=== PATIENT | male | born 1990 | race Caucasian/White ===

== ENCOUNTER 2025-01-23 09:16 | Inpatient (IN) | payer MEDICAID, OTHER ==
[~2025-01-23] VITALS: Ht 177.8 cm; Wt 97.8 kg
--- NOTE | 2025-01-23 11:17 | ED.PDOC ---
Musculoskeletal HPI Comments Vitals: temperature of 99.0F, pulse rate of 114, respiratory rate of 18, blood pressure fo 112/94, SpO2 of 95%RA HPI: Poor Historian. Patient c/o left lower leg ulcer wound, with associated swelling, redness, and pain and fever, today. Past Medical History: asthma Past Surgical History: denies REVIEW OF SYSTEMS: CONSTITUTIONAL: Denies acute: fever, diaphoresis, chills, generalized weakness. HEAD: Denies acute: headache, photophobia Eyes: Denies acute: Double vision, vision loss, eye pain, eye discharge. EARS: Denies acute: tinnitus, hearing loss, ear discharge, ear pain, THROAT: Denies acute: sore throat, swelling, difficulty swallowing , pain with swallowing, change in voice. NECK: Denies acute: neck pain, neck swelling, stiff neck. HEART: Denies acute : chest pain, palpitations, LUNGS: Denies acute: SOB, wheezing, cough, hemoptysis ABDOMEN: Denies acute: abdominal pain, Nausea, Vomiting, diarrhea, melena , hematemesis, hematochezia SKIN: Denies acute: itchiness. EXTREMITIES: Denies acute: calf pain, numbness, tingling, weakness, denies pain in extremity. Denies acute: Low back pain. Neuro: Denies acute: focal neurological deficit, motor or sensory focal neurological deficit, tremors, seizure like activity, confusion, dizziness, change in mental status, loss of bowel or bladder function, cauda equina like symptoms. : Denies acute: dysuria, hematuria, flank pain, increase in urinary frequency. PSYCH: Denies acute: hallucination, suicidal ideation, homicidal ideation. PHYSICAL EXAM: General: ---mild-----acute distress, awake and alert. Head: normocephalic, atraumatic. Neck: supple, trachea is midline, no swelling. Throat: Normal phonation. Eyes:, no erythema, no purulent discharge, no proptosis, no icterus. Heart: regular rate, regular rhythm, no significant murmur appreciated. Lungs: no apparent respiratory distress, Able to speak in full sentences. No wheezing, no rhonchi, no crackles. No stridors Clear to auscultation bilaterally. Abdomen: non tender to palpation, non distended, soft, no guarding, no rebound, + bowel sounds. Neuro: Awake, Alert, oriented to name, self, situation, follows commands GCS=15. Speech is normal. Skin: no petechia, no purpura, no cyanosis, non-pale, not jaundice. Lower extremities: --2/4 b/l - Pitting edema no deformity, no focal swelling, no calf TTP. Evaluation of the left lower extremity where his area of complaint is: Noted old scabs and chronic findings of erythema and swelling and redness but he is somewhat tender to palpation in the area above the ankle. Patient is neurovascularly intact in the affected extremity. Pedal pulses palpable. Sensory and motor are present. There is noted generalized swelling involving the left foot and above the left ankle Makes eye contact. moves all four extremities. Face: no apparent facial droop. Ambulating in the ED independently. Pedal pulses are palpable. ED COURSE: Chief Complaint: Lower Extremity Time Seen by MD: 10:20 Reviewed Notes: Nurses Notes, Allergies Allergies: Coded Allergies: NO KNOWN ALLERGIES (Unverified , 01/23/25) Information Source: Patient Mode of Arrival: Ambulatory Location: Left Was a procedure done? Was a procedure done?: No Differential Diagnosis EXT Differential Diagnosis: Cellulitis, CHF, Deep Vein Thrombosis, Compartment Syndrome, Neurovascular injury, Other (Deep tissue infection, necrotizing fasciitis, abscess) X-Ray, Labs, Meds, VS Vital Signs Date Time Temp Pulse Resp B/P (MAP) Pulse Ox O2 Delivery O2 Flow Rate FiO2 01/23/25 12:42 98.1 118 18 123/83 (96) 95 98.1 01/23/25 10:50 97.8 107 18 124/86 (99) 95 97.8 01/23/25 09:59 99.0 114 18 112/94 (100) 95 99.0 Lab Test 01/23/25 11:34 Range/Units White Blood Count 6.6 4.4-10.8 10^3/uL Red Blood Count 5.29 4.5-5.90 10^6/uL Hemoglobin 15.2 13.5-17.5 g/dL Hematocrit 43.9 41.0-53.0 % Mean Corpuscular Volume 82.8 80.0-100.0 fL Mean Corpuscular Hemoglobin 28.6 28.0-32.0 pg Mean Corpuscular Hemoglobin Concent 34.6 32.0-36.0 g/dL Red Cell Distribution Width 14.3 11.8-14.3 % Platelet Count 318 140-450 10^3/uL Mean Platelet Volume 7.4 6.9-10.8 fL Neutrophils (%) (Auto) 75.2 37.0-80.0 % Lymphocytes (%) (Auto) 12.0 10.0-50.0 % Monocytes (%) (Auto) 8.4 0.0-12.0 % Eosinophils (%) (Auto) 3.6 0.0-7.0 % Basophils (%) (Auto) 0.8 0.0-2.0 % Neutrophils # (Auto) 5.0 1.6-8.6 10 ^3/uL Lymphocytes # (Auto) 0.8 0.4-5.4 10 ^3/uL Monocytes # (Auto) 0.6 0-1.3 10 ^3/uL Eosinophils # (Auto) 0.2 0-0.8 10 ^3/uL Basophils # (Auto) 0.1 0-0.2 10 ^3/uL Nucleated Red Blood Cells 0.1 % Erythrocyte Sedimentation Rate 61 H 0-20 mm/hr Sodium Level 137 136-145 mmol/L Potassium Level 4.2 3.5-5.1 mmol/L Chloride Level 103 98-107 mmol/L Carbon Dioxide Level 25 20-31 mmol/L Anion Gap 9 5-15 Blood Urea Nitrogen 8 L 9-23 mg/dL Creatinine 0.86 0.700-1.30 mg/dL Glomerular Filtration Rate Calc 117 >90 mL/min BUN/Creatinine Ratio 9.3 L 10.0-20.0 Serum Glucose 113 H 74-106 mg/dL Lactic Acid Level 0.9 0.4-2.0 mmol/L Calcium Level 9.1 8.7-10.4 mg/dL Total Bilirubin 0.7 0.2-1.0 mg/dL Aspartate Amino Transferase (AST) 31 13-40 U/L Alanine Aminotransferase (ALT) 48 H 7-40 U/L Alkaline Phosphatase 109 46-116 U/L C-Reactive Protein High Sensitivity 12.08 H <1.0 mg/dL B-Type Natriuretic Peptide 2.97 0-100 pg/mL Total Protein 7.6 5.7-8.2 g/dL Albumin 4.2 3.2-4.8 g/dL Microbiology Date/Time Source Procedure Growth Status 01/23/25 13:11 Blood Blood Culture - Preliminary NO GROWTH AFTER 24 HOURS OF INCUBATION. Resulted 01/23/25 13:00 Blood Blood Culture - Preliminary NO GROWTH AFTER 24 HOURS OF INCUBATION. Resulted [facility] [id number] [place] [address] Ph: [phone] DIAGNOSTIC IMAGING Diagnostic Imaging Report : [id number] Signed PATIENT: CODI FRENCH ACCT: [id number] UNIT: [id number] : 1990 LOC: ER ROOM / BED: / AGE / SEX: 34 / M ADM STATUS: REG ER SERVICE 1041 ORDERING PHYSICIAN: ALEJANDRO WATKINS DO PROCEDURE(s): LLDVT - LT Lower DVT REASON: PAIN RED SWELLING ORDER NUMBER(s): [id number], ACCESSION NUMBER(s): [id number] Clinical History: PAIN RED SWELLING Comparison: None Technique: Duplex Doppler evaluation of the deep venous system of the left lower extremity from the common femoral vein to the popliteal vein including color Doppler and spectral/pulsed waveform analysis was performed. Findings: The common femoral vein demonstrates appropriate compressibility and waveform variability . There is compressibility/patency of the great saphenous vein at the proximal thigh . The femoral vein demonstrates appropriate compressibility and waveform variability . The deep femoral vein demonstrates appropriate compressibility and waveform variability . The popliteal vein demonstrates appropriate compressibility and waveform variability . There is normal compressibility at the tibioperoneal trunk. Impression: No left deep venous thrombosis. If clinical concern/symptoms persist or worsen, short-interval follow-up study is suggested. ATED BY: JESUS NOONAN MD DICTATED DATE/TIME: 01/23/25 1236 SIGNED BY: JESUS NOONAN MD SIGNED DATE/TIME: 01/23/251235 CC: Time of 1ST Reevaluation: 10:20 Reevaluation 1ST: Unchanged Patient Education/Counseling: Diagnosis, Treatment Family Education/Counseling: No Family Present Comments Patient presented with the above HPI.--leg cellulitis/erythema----workup was initiated. patient was found with the above mentioned diagnosis. the following medications were ordered: please refer to order lists of meds and tests obtained by myself Dr. Watkins. Patient ED course and VS have been stabilized. Patient has been reassessed in the ED and remained in a stable condition. Pertinent incidental findings were discussed with the patient and/or family. Patient/family voices understanding and is agreeable with plan. Patient has been observed in the ED adequate length of time to insure improvement/stability. Escalation of care considered: Consideration of escalation to observation or admission Patient was ADMITTED to the medicine team for further evaluation and treatment of their presentation. All the reports of any imaging studies that were ordered by myself were reviewed by myself. Departure 1 Departure Time of Disposition: 12:28 Impression: Primary Impression: Left leg cellulitis Disposition: ADMITTED INPATIENT [facility] Condition: Guarded Discharged With: Self Critical Care Note Critical Care Time?: No I personally scribed for ALEJANDRO WATKINS DO ([email or web address]) on 01/23/25 at 11:17. Electronically submitted by [employer] ([email or web address]). I personally scribed for ALEJANDRO WATKINS DO ([email or web address]) on 01/23/25 at 12:34. Electronically submitted by [employer] ([email or web address]). I personally scribed for ALEJANDRO WATKINS DO ([email or web address]) on 01/23/25 at 12:49. Electronically submitted by [employer] ([email or web address]). I personally scribed for ALEJANDRO WATKINS DO ([email or web address]) on 01/23/25 at 12:50. Electronically submitted by [employer] ([email or web address]). ALEJANDRO WATKINS DO Jan 23, 2025 11:17
[2025-01-23 11:54] LABS: Basophils # (auto) 0.1 10 ^3/uL (0-0.2); Basophils % (auto) 0.8 % (0.0-2.0); Eosinophils # (auto) 0.2 10 ^3/uL (0-0.8); Eosinophils % (auto) 3.6 % (0.0-7.0); Hematocrit 43.9 % (41.0-53.0); Hemoglobin 15.2 g/dL (13.5-17.5); Lymphocytes # (auto) 0.8 10 ^3/uL (0.4-5.4); Mean Corpuscular Hemoglobin 28.6 pg (28.0-32.0); Mean Corpuscular Hgb Conc. 34.6 g/dL (32.0-36.0); Mean Corpuscular Volume 82.8 fL (80.0-100.0); Monocytes # (auto) 0.6 10 ^3/uL (0-1.3); Monocytes % (auto) 8.4 % (0.0-12.0); Neutrophils % (auto) 75.2 % (37.0-80.0); Nucleated Red Blood Cells % 0.1 %; Platelet Count (auto) 318 10^3/uL (140-450); Red Blood Cells 5.29 10^6/uL (4.5-5.90); Red Cell Distribution Width 14.3 % (11.8-14.3); White Blood Cell 6.6 10^3/uL (4.4-10.8)
[2025-01-23 12:10] LABS: Albumin 4.2 g/dL (3.2-4.8); Alkaline Phosphatase 109 U/L (46-116); Anion Gap 9 (5-15); Aspartate Aminotransferase 31 U/L (13-40); BUN/Creatinine Ratio 9.3 (10.0-20.0); Calcium 9.1 mg/dL (8.7-10.4); Carbon Dioxide 25 mmol/L (20-31); Chloride 103 mmol/L (98-107); Potassium 4.2 mmol/L (3.5-5.1); Sodium 137 mmol/L (136-145); Total Protein 7.6 g/dL (5.7-8.2)
[2025-01-23 12:11] LABS: Alanine Aminotransferase 48 U/L (7-40); Bilirubin, Total 0.7 mg/dL (0.2-1.0); Blood Urea Nitrogen 8 mg/dL (9-23); Glucose 113 mg/dL (74-106)
[2025-01-23 12:19] LABS: CRP High Sensitivity 12.08 mg/dL (<1.0)
[2025-01-23 12:37] LABS: Erythrocyte Sedimentation Rate 61 mm/hr (0-20)
--- NOTE | 2025-01-23 12:39 | DVH ---
Clinical History: PAIN RED SWELLING Comparison: None Technique: Duplex Doppler evaluation of the deep venous system of the left lower extremity from the common femo ral vein to the popliteal vein including color Doppler and spectral/pulsed waveform analysis was perf ormed. Findings: The common femoral vein demonstrates appropriate compressibility and waveform variability . There is compressibility/patency of the great saphenous vein at the proximal thigh . The femoral vein demonstrates appropriate compressibility and waveform variability . The deep femoral vein demonstrates appropriate compressibility and waveform variability . The popliteal vein demonstrates appropriate compressibility and waveform variability . There is normal compressibility at the tibioperoneal trunk. Impression: No left deep venous thrombosis. If clinical concern/symptoms persist or worsen, short-interval follow-up study is suggested.
[2025-01-23] MEDS: SODIUM CHLORIDE 0.9% 1,000 ML IV ONE ×2 (13:28→13:30)
[2025-01-23] MEDS: PIPERACILLIN-TAZOB 3.375GM 100 ML IV ONE (13:36)
[2025-01-23] MEDS ORDERED: NITROGLYCERIN 0.4 MG SL TAB SL PRN (14:00)
[2025-01-23] MEDS ORDERED: DOCUSATE SOD 100 MG CAP PO PRN (14:00)
[2025-01-23] MEDS ORDERED: ONDANSETRON HCL 4 MG/2 ML VIAL IV PRN (14:00)
[2025-01-23] MEDS ORDERED: VANCOMYCIN PER PHARMACY 0 MG IV SCH (14:00)
[2025-01-23] MEDS ORDERED: MORPHINE SULFATE INJ 2 MG/ml SYRG IV PRN (14:00)
--- NOTE | 2025-01-23 14:59 | DVHINCON2 ---
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 Recently he started developing pain and has also developed new wounds. He has pets in his house which has also contributed to some of his wounds. Id is consulted to help with management of cellulitis and wounds Reports smokes marijuana Denies history of IV drug use Currently he is on disability Allergies: Coded Allergies: NO KNOWN ALLERGIES (Unverified , 01/23/25) Current Medications Current Medications Medications (Trade) Dose Ordered Sig/Linda Route PRN Reason Start Time Stop Time Status Last Admin Sodium Chloride 1,000 ml @ 120 mls/hr Q8H20M IV 01/23/25 14:00 Acetaminophen/ Hydrocodone Bitart ([place] 5/325MG Tab) 1 tab Q4HP PRN PO MODERATE PAIN (4-6 PAIN SCALE) 01/23/25 14:00 Ondansetron HCl (Zofran) 4 mg Q4HP PRN IV NAUSEA / VOMITING 01/23/25 14:00 Docusate Sodium (Colace Capsule) 100 mg BIDPRN PRN PO FOR CONSTIPATION 01/23/25 14:00 Enoxaparin Sodium (Lovenox) 40 mg DAILY SC 01/24/25 10:00 Acetaminophen (Tylenol Tablet) 650 mg Q6HP PRN PO PAIN SCALE 1-3 OR TEMP>100.4 01/23/25 14:00 Morphine Sulfate 2 mg Q4HPRN PRN IV SEVERE PAIN (7-10 PAIN SCALE) 01/23/25 14:00 Nitroglycerin (Ntrostat Sublingual) 0.4 mg Q5MINP PRN SL FOR CHEST PAIN 01/23/25 14:00 Morphine Sulfate 2 mg Q30M PRN IV FOR CHEST PAIN 01/23/25 14:00 Vancomycin HCl 0 ml @ 0 mls/hr UD IV 01/23/25 14:00 UNV Piperacillin Sod/ Tazobactam Sod 100 ml @ 25 mls/hr Q6HR IV 01/23/25 18:00 Review of Systems All 10 systems reviewed and are negative except as noted in HPI Vital Signs Vital Signs Date Time Temp Pulse Resp B/P (MAP) Pulse Ox O2 Delivery O2 Flow Rate FiO2 01/23/25 12:42 98.1 118 18 123/83 (96) 95 98.1 Physical Exam General alert and oriented HEENT: Atraumatic Neck: No swelling Lungs: Equal air entry and clear to auscultation Cardiovascular: S2 heard no murmur Abdomen: Soft nontender, no organomegaly, nondistended Neuro: Alert and oriented, no focal deficit Psych: Normal mood and affect Left leg: Edema present, chronic skin changes and there are multiple wounds Labs/Diagnostic Data Labs Test 01/23/25 11:34 Range/Units White Blood Count 6.6 4.4-10.8 10^3/uL Red Blood Count 5.29 4.5-5.90 10^6/uL Hemoglobin 15.2 13.5-17.5 g/dL Hematocrit 43.9 41.0-53.0 % Mean Corpuscular Volume 82.8 80.0-100.0 fL Mean Corpuscular Hemoglobin 28.6 28.0-32.0 pg Mean Corpuscular Hemoglobin Concent 34.6 32.0-36.0 g/dL Red Cell Distribution Width 14.3 11.8-14.3 % Platelet Count 318 140-450 10^3/uL Mean Platelet Volume 7.4 6.9-10.8 fL Neutrophils (%) (Auto) 75.2 37.0-80.0 % Lymphocytes (%) (Auto) 12.0 10.0-50.0 % Monocytes (%) (Auto) 8.4 0.0-12.0 % Eosinophils (%) (Auto) 3.6 0.0-7.0 % Basophils (%) (Auto) 0.8 0.0-2.0 % Neutrophils # (Auto) 5.0 1.6-8.6 10 ^3/uL Lymphocytes # (Auto) 0.8 0.4-5.4 10 ^3/uL Monocytes # (Auto) 0.6 0-1.3 10 ^3/uL Eosinophils # (Auto) 0.2 0-0.8 10 ^3/uL Basophils # (Auto) 0.1 0-0.2 10 ^3/uL Nucleated Red Blood Cells 0.1 % Erythrocyte Sedimentation Rate 61 H 0-20 mm/hr Sodium Level 137 136-145 mmol/L Potassium Level 4.2 3.5-5.1 mmol/L Chloride Level 103 98-107 mmol/L Carbon Dioxide Level 25 20-31 mmol/L Anion Gap 9 5-15 Blood Urea Nitrogen 8 L 9-23 mg/dL Creatinine 0.86 0.700-1.30 mg/dL Glomerular Filtration Rate Calc 117 >90 mL/min BUN/Creatinine Ratio 9.3 L 10.0-20.0 Serum Glucose 113 H 74-106 mg/dL Lactic Acid Level 0.9 0.4-2.0 mmol/L Calcium Level 9.1 8.7-10.4 mg/dL Total Bilirubin 0.7 0.2-1.0 mg/dL Aspartate Amino Transferase (AST) 31 13-40 U/L Alanine Aminotransferase (ALT) 48 H 7-40 U/L Alkaline Phosphatase 109 46-116 U/L C-Reactive Protein High Sensitivity 12.08 H <1.0 mg/dL B-Type Natriuretic Peptide 2.97 0-100 pg/mL Total Protein 7.6 5.7-8.2 g/dL Albumin 4.2 3.2-4.8 g/dL Assessment A 34-year-old male Left leg cellulitis Left leg edema Left leg multiple wounds Venous reflux disease Chronic venous stasis Marijuana use Recommendations Due to his previous job profile, there is suspicion for venous reflux disease on the left extremity contributing to leg edema as well as chronic wounds. Ordered Doppler ultrasound in standing position to rule out venous reflux disease For now continue IV vancomycin, we will monitor for toxicity with labs We will DC IV Zosyn and switch to IV ceftriaxone Continue wound care Elevate leg Plan discussed with the patient and Dr. Cross Total 80 minutes spent during the encounter and coordinating the care and formulating the plan Thank you for consult Plan discussed with: Patient, Other REESE FRENCH MD Jan 23, 2025 14:59
[2025-01-23] MEDS: VANCOMYCIN 1GM/200ML PM 250 ML IV ONE ×2 (15:16→16:41)
--- NOTE | 2025-01-23 15:54 | DVHHP2 ---
History of Present Illness Reason for Visit: Left lower extremity pain and chronic wounds History of Present Illness 34-year-old male with a known history of chronic marijuana use initially presented to the hospital with left leg pain associated with a chronic left lower extremity wounds. Patient's has a disease wounds are for years but lately he will develop increased pain in the left lower extremity. Also he has some PET dog at home and who contribute to his wound by scratching it. Patient's denies any fevers chills. Denies any IV drug use. Pulmonary: Asthma Past Surgical History: None Drugs: Marijuana Review of Systems Review of Systems Twelve review of system are negative besides mentioned above. Allergies: Coded Allergies: NO KNOWN ALLERGIES (Unverified , 01/23/25) Medications Current Medications Medications Dose Ordered Sig/Linda Route Start Time Stop Time Status Last Admin Dose Admin Sodium Chloride 1,000 ml @ 120 mls/hr Q8H20M IV 01/23/25 14:00 Acetaminophen/ Hydrocodone Bitart 1 tab Q4HP PRN PO 01/23/25 14:00 Ondansetron HCl 4 mg Q4HP PRN IV 01/23/25 14:00 Docusate Sodium 100 mg BIDPRN PRN PO 01/23/25 14:00 Enoxaparin Sodium 40 mg DAILY SC 01/24/25 10:00 Acetaminophen 650 mg Q6HP PRN PO 01/23/25 14:00 Morphine Sulfate 2 mg Q4HPRN PRN IV 01/23/25 14:00 Nitroglycerin 0.4 mg Q5MINP PRN SL 01/23/25 14:00 Morphine Sulfate 2 mg Q30M PRN IV 01/23/25 14:00 Vancomycin HCl 0 ml @ 0 mls/hr UD IV 01/23/25 14:00 Ceftriaxone Sodium 50 ml @ 100 mls/hr DAILY@09 IV 01/24/25 09:00 UNV Vancomycin HCl 300 ml @ 200 mls/hr Q12H IV 01/24/25 03:00 Exam Vital Signs Vital Signs Date Time Temp Pulse Resp B/P (MAP) Pulse Ox O2 Delivery O2 Flow Rate FiO2 01/23/25 12:42 98.1 118 18 123/83 (96) 95 98.1 Exam HEENT pupils are reactive Neck is supple CV is S1-S2 regular rate and rhythm Respiratory bilateral clear GI positive bowel sound Extremity trace edema left lower extremity has chronic wounds and some redness 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 Labs/Xrays Labs Test 01/23/25 11:34 Range/Units White Blood Count 6.6 4.4-10.8 10^3/uL Red Blood Count 5.29 4.5-5.90 10^6/uL Hemoglobin 15.2 13.5-17.5 g/dL Hematocrit 43.9 41.0-53.0 % Mean Corpuscular Volume 82.8 80.0-100.0 fL Mean Corpuscular Hemoglobin 28.6 28.0-32.0 pg Mean Corpuscular Hemoglobin Concent 34.6 32.0-36.0 g/dL Red Cell Distribution Width 14.3 11.8-14.3 % Platelet Count 318 140-450 10^3/uL Mean Platelet Volume 7.4 6.9-10.8 fL Neutrophils (%) (Auto) 75.2 37.0-80.0 % Lymphocytes (%) (Auto) 12.0 10.0-50.0 % Monocytes (%) (Auto) 8.4 0.0-12.0 % Eosinophils (%) (Auto) 3.6 0.0-7.0 % Basophils (%) (Auto) 0.8 0.0-2.0 % Neutrophils # (Auto) 5.0 1.6-8.6 10 ^3/uL Lymphocytes # (Auto) 0.8 0.4-5.4 10 ^3/uL Monocytes # (Auto) 0.6 0-1.3 10 ^3/uL Eosinophils # (Auto) 0.2 0-0.8 10 ^3/uL Basophils # (Auto) 0.1 0-0.2 10 ^3/uL Nucleated Red Blood Cells 0.1 % Erythrocyte Sedimentation Rate 61 H 0-20 mm/hr Sodium Level 137 136-145 mmol/L Potassium Level 4.2 3.5-5.1 mmol/L Chloride Level 103 98-107 mmol/L Carbon Dioxide Level 25 20-31 mmol/L Anion Gap 9 5-15 Blood Urea Nitrogen 8 L 9-23 mg/dL Creatinine 0.86 0.700-1.30 mg/dL Glomerular Filtration Rate Calc 117 >90 mL/min BUN/Creatinine Ratio 9.3 L 10.0-20.0 Serum Glucose 113 H 74-106 mg/dL Lactic Acid Level 0.9 0.4-2.0 mmol/L Calcium Level 9.1 8.7-10.4 mg/dL Total Bilirubin 0.7 0.2-1.0 mg/dL Aspartate Amino Transferase (AST) 31 13-40 U/L Alanine Aminotransferase (ALT) 48 H 7-40 U/L Alkaline Phosphatase 109 46-116 U/L C-Reactive Protein High Sensitivity 12.08 H <1.0 mg/dL B-Type Natriuretic Peptide 2.97 0-100 pg/mL Total Protein 7.6 5.7-8.2 g/dL Albumin 4.2 3.2-4.8 g/dL Assessment/Plan Assessment/Plan A 34-year-old male with a known history of chronic wounds of the left lower ext remity, chronic marijuana use presented to the hospital with a left lower extremity pain found to have 1. Left lower extremity cellulitis 2. Left lower extremity chronic wounds 3. Rule out venous reflux disease 4. Chronic marijuana use 5. History of asthma as a child currently outgrew -IV antibiotics infectious disease consultation Plan discussed with: Patient My Orders Orders - JEFF LEYVA MD Procedure Category Date Status Time Admit ADMIT 01/23/25 Transmitted 13:49 Code Status CODE 01/23/25 Transmitted 13:49 2 Gm Sodium Diet DIET 01/23/25 Transmitted Dinner Sodium Chloride 0.9% PHA 01/23/25 In Process 14:00 Hydrocodone-Acet PHA 01/23/25 In Process 5/325mg Tab ([place] 14:00 Ondansetron Hcl PHA 01/23/25 In Process (Zofran) 14:00 Docusate Sodium PHA 01/23/25 In Process Capsule (Colace 14:00 Enoxaparin Sodium PHA 01/24/25 In Process (Lovenox) 10:00 Condition: Stable HARDY 01/23/25 In Process 13:49 Acetaminophen Tablet PHA 01/23/25 In Process (Tylenol Tablet) 14:00 Morphine Sulfate PHA 01/23/25 In Process Injection 14:00 Nitroglycerin PHA 01/23/25 In Process Sublingual (Ntrostat 14:00 Morphine Sulfate PHA 01/23/25 In Process Injection 14:00 Stat Ekg For Chest HARDY 01/23/25 In Process Pain 13:49 Notify Of Changes HARDY 01/23/25 In Process From Base 13:49 Packer Operator Automatic For [facility] 01/23/25 In Process 24 Hours 13:49 Emergency Dysrhythmia [facility] 01/23/25 In Process Protocol 13:49 Rhythm Strips Once [facility] 01/23/25 In Process Every Shift 13:49 Oxygen By Nasal RT 01/23/25 Transmitted Cannula 13:49 Vancomycin Per PHA 01/23/25 In Process Pharmacy 14:00 * Infectious Betty- CONS 01/23/25 Transmitted Mallad 13:49 Vancomycin 1.5gm/300ml PHA 01/24/25 In Process 03:00 Vancomycin,Trough LAB 01/25/25 Verified 02:00 Vancomycin Per [facility] 01/25/25 In Process Pharmacy Protoc 03:00 Creatinine LAB 01/23/25 Logged 05:00 Date of Service: Jan 23, 2025 Billing Provider: JEFF LEYVA MD Common Visit Codes: NOT BILLABLE JEFF LEYVA MD Jan 23, 2025 15:54
[2025-01-23] MEDS: SODIUM CHLORIDE 0.9% 1,000 ML IV SCH (16:42)
[2025-01-23] MEDS: MORPHINE SULFATE INJ 2 MG/ml SYRG IV PRN (16:42)
[2025-01-23 17:15] VITALS: BP 130/68; PULSE 100; RESP 20; TEMP 98.4; O2SAT 96
[2025-01-23] MEDS ORDERED: PIPERACILLIN-TAZOB 3.375GM 100 ML IV SCH (18:00)
[2025-01-23] MEDS: cefTRIAXone 1GM/50ML D5W 50 ML IV SCH (18:09)
[2025-01-23 20:00] VITALS: PULSE 104; RESP 17; O2SAT 98
[2025-01-23 21:00] VITALS: BP 128/72; PULSE 109; RESP 20; TEMP 97.9; O2SAT 97
[2025-01-23] MEDS: HYDROcodone-ACET 5/325MG TAB PO PRN (22:43)
[2025-01-23] MEDS: ACETAMINOPHEN 325 MG TAB PO PRN (23:46)
[2025-01-24] VITALS (9 sets, daily range): BP systolic 96–141; BP diastolic 60–83; PULSE 70–95; RESP 15–20; TEMP 97.1–98.3; O2SAT 94–98
[2025-01-24] MEDS: VANCOMYCIN 1.5GM/300ML 300 ML IV SCH (02:55)
--- NOTE | 2025-01-24 08:40 | DVHPN2 ---
Progress Note - Dictate Date Seen: Jan 24, 2025 Has the PT tested + for MRSA If YES, has PT been informed?: No Medical Necessity Reason Pt with a Central, PICC or Fol: No Subjective No new complaints noted at this time. vital signs Vital Sign Date Time Temp Pulse Resp B/P (MAP) Pulse Ox O2 Delivery O2 Flow Rate FiO2 01/24/25 05:00 97.6 83 18 103/64 (77) 94 97.6 01/23/25 20:00 Room Air* 0 21 Total Intake and Output 01/23/25 01/23/25 01/24/25 15:00 23:00 07:00 Intake Total 290 ml 950 ml Balance 290 ml 950 ml medications Current Medications Medications Dose Ordered Sig/Linda Route Start Time Stop Time Status Last Admin Dose Admin Sodium Chloride 1,000 ml @ 120 mls/hr Q8H20M IV 01/23/25 14:00 01/23/25 22:20 120 MLS/HR Acetaminophen/ Hydrocodone Bitart 1 tab Q4HP PRN PO 01/23/25 14:00 01/23/25 22:43 1 TAB Ondansetron HCl 4 mg Q4HP PRN IV 01/23/25 14:00 Docusate Sodium 100 mg BIDPRN PRN PO 01/23/25 14:00 Enoxaparin Sodium 40 mg DAILY SC 01/24/25 10:00 Acetaminophen 650 mg Q6HP PRN PO 01/23/25 14:00 01/23/25 23:46 650 MG Morphine Sulfate 2 mg Q4HPRN PRN IV 01/23/25 14:00 01/23/25 16:42 2 MG Nitroglycerin 0.4 mg Q5MINP PRN SL 01/23/25 14:00 Morphine Sulfate 2 mg Q30M PRN IV 01/23/25 14:00 Vancomycin HCl 0 ml @ 0 mls/hr UD IV 01/23/25 14:00 Ceftriaxone Sodium 50 ml @ 100 mls/hr DAILY@09 IV 01/23/25 18:00 01/23/25 18:09 100 MLS/HR Vancomycin HCl 300 ml @ 200 mls/hr Q12H IV 01/24/25 03:00 01/24/25 02:55 200 MLS/HR objective General alert and oriented HEENT: Atraumatic Neck: No swelling Lungs: Equal air entry and clear to auscultation Cardiovascular: S2 heard no murmur Abdomen: Soft nontender, no organomegaly, nondistended Neuro: Alert and oriented, no focal deficit Psych: Normal mood and affect Left leg: Edema present, chronic skin changes and there are multiple wounds laboratory and microbiology Laboratory Tests 01/24/25 06:03 01/23/25 11:34 Test 01/23/25 11:34 Range/Units Serum Glucose 113 H 74-106 mg/dL Assessment/Plan Patient is a 34-year-old male presents to the hospital with: Left leg cellulitis Left leg edema Left leg multiple wounds Venous reflux disease Chronic venous stasis Marijuana use Recommendations Due to his previous job profile, there is suspicion for venous reflux disease on the left extremity contributing to leg edema as well as chronic wounds. Ordered Doppler ultrasound in standing position to rule out venous reflux disease. However, radiology called that they do not perform this test as Inpatient hence discussed with Dr. Cross to recommend for Outpatient. For now continue IV Vancomycin, we will monitor for toxicity with labs We will DC IV Zosyn and switch to IV Ceftriaxone Continue wound care Elevate leg At the time of discharge consider tapering to oral Bactrim for 5-7 days. Vancomycin Trough is 11.9. Antibiotic Status: Zosyn IV [Started on 01/23 - Ongoing] Vancomycin IV [Started on 01/23 - Ongoing] Ceftriaxone IV [Started on 01/23 - Ongoing] Plan discussed with Dr. Cross A total of 50 minutes was spent performing this encounter on this date of service. My evaluation of this patient included review of the chart, history, laboratory, imaging findings and discussion with the patient and or family, treatment team placing orders and documenting the plan. Thank you for consult Plan discussed with: REESE Alvarez MD Jan 24, 2025 08:40
[2025-01-24] MEDS: ENOXAPARIN SOD 40 MG/0.4 ML SYRINGE SC SCH (09:52)
--- NOTE | 2025-01-24 14:15 | DVHPN2 ---
Subjective Overnight events noted. Patient is still complaining of left lower extremity pain. Reviewed: Care Plan Changes from previous H/P or p: No Changes Objective Vitals Vital Signs Date Time Temp Pulse Resp B/P (MAP) Pulse Ox O2 Delivery O2 Flow Rate FiO2 01/24/25 09:00 97.8 70 18 96/64 (75) 98 97.8 01/24/25 08:00 Room Air* 0 21 Intake/Output Intake and Output 01/24/25 07:00 Intake Total 1240 ml Balance 1240 ml Intake Oral 950 ml IV Total 290 ml # Voids 5 Exam HEENT pupils are reactive Neck is supple CV is S1-S2 regular rate and rhythm Respiratory are clear GI positive bowel sound Extremity left lower extremity redness and chronic wounds [employer] no motor deficit Medications Current Medications Medications Dose Ordered Sig/Linda Route Start Time Stop Time Status Last Admin Dose Admin Sodium Chloride 1,000 ml @ 120 mls/hr Q8H20M IV 01/23/25 14:00 01/23/25 22:20 120 MLS/HR Acetaminophen/ Hydrocodone Bitart 1 tab Q4HP PRN PO 01/23/25 14:00 01/23/25 22:43 1 TAB Ondansetron HCl 4 mg Q4HP PRN IV 01/23/25 14:00 Docusate Sodium 100 mg BIDPRN PRN PO 01/23/25 14:00 Enoxaparin Sodium 40 mg DAILY SC 01/24/25 10:00 Acetaminophen 650 mg Q6HP PRN PO 01/23/25 14:00 01/23/25 23:46 650 MG Morphine Sulfate 2 mg Q4HPRN PRN IV 01/23/25 14:00 01/23/25 16:42 2 MG Nitroglycerin 0.4 mg Q5MINP PRN SL 01/23/25 14:00 Morphine Sulfate 2 mg Q30M PRN IV 01/23/25 14:00 Vancomycin HCl 0 ml @ 0 mls/hr UD IV 01/23/25 14:00 Ceftriaxone Sodium 50 ml @ 100 mls/hr DAILY@09 IV 01/23/25 18:00 01/24/25 09:52 100 MLS/HR Vancomycin HCl 300 ml @ 200 mls/hr Q12H IV 01/24/25 03:00 01/24/25 02:55 200 MLS/HR Laboratory Results Laboratory Tests 01/23/25 11:34 01/24/25 06:03 Microbiology Microbiology Date/Time Source Procedure Growth Status 01/23/25 13:11 Blood Blood Culture - Preliminary NO GROWTH AFTER 24 HOURS OF INCUBATION. 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 Left lower extremity cellulitis 2. Left lower extremity chronic wounds 3. Rule out venous reflux disease 4. Chronic marijuana use 5. History of asthma as a child currently outgrew -IV antibiotics infectious disease consultation appreciated -pain management, DVT GI prophylaxis Plan discussed with: Patient My Orders Orders - JEFF LEYVA MD Procedure Category Date Status Time Vancomycin 1.5gm/300ml PHA 01/24/25 In Process 03:00 Vancomycin,Trough LAB 01/25/25 Verified 02:00 Vancomycin Per [facility]ARDY 01/25/25 In Process Pharmacy Pro[facility] 03:00 Date of Service: Jan 24, 2025 Billing Provider: JEFF LEYVA MD Common Visit Codes: NOT BILLABLE JEFF LEYVA MD Jan 24, 2025 14:15
[2025-01-25 01:00] VITALS: BP 132/79; PULSE 85; RESP 18; TEMP 98; O2SAT 98
[2025-01-25 05:00] VITALS: BP 123/87; PULSE 48; RESP 15; TEMP 97.7; O2SAT 99
[2025-01-25 08:00] VITALS: PULSE 64; RESP 17
[2025-01-25 09:00] VITALS: BP 115/79; PULSE 84; RESP 18; TEMP 97.5; O2SAT 95
[2025-01-25 13:00] VITALS: BP 112/68; PULSE 75; RESP 18; TEMP 97.5; O2SAT 97
[2025-01-25] MEDS ORDERED: BACDST PO (14:12)
[2025-01-25] MEDS ORDERED: HYDR-4902 PO (14:12)
--- NOTE | 2025-01-25 14:17 | DVHDS2 ---
Discharge Summary Date of Admission Jan 23, 2025 at 13:49 Date of Discharge: Jan 25, 2025 Labs/Diagnostic Data: Laboratory Results Test 01/25/25 01:52 01/23/25 11:34 Creatinine 0.83 mg/dL (0.700-1.30) Glomerular Filtration Rate Calc 118 mL/min (>90) Vancomycin Level Trough 11.9 ug/mL (5-10) White Blood Count 6.6 10^3/uL (4.4-10.8) Red Blood Count 5.29 10^6/uL (4.5-5.90) Hemoglobin 15.2 g/dL (13.5-17.5) Hematocrit 43.9 % (41.0-53.0) Mean Corpuscular Volume 82.8 fL (80.0-100.0) Mean Corpuscular Hemoglobin 28.6 pg (28.0-32.0) Mean Corpuscular Hemoglobin Concent 34.6 g/dL (32.0-36.0) Red Cell Distribution Width 14.3 % (11.8-14.3) Platelet Count 318 10^3/uL (140-450) Mean Platelet Volume 7.4 fL (6.9-10.8) Neutrophils (%) (Auto) 75.2 % (37.0-80.0) Lymphocytes (%) (Auto) 12.0 % (10.0-50.0) Monocytes (%) (Auto) 8.4 % (0.0-12.0) Eosinophils (%) (Auto) 3.6 % (0.0-7.0) Basophils (%) (Auto) 0.8 % (0.0-2.0) Neutrophils # (Auto) 5.0 10 ^3/uL (1.6-8.6) Lymphocytes # (Auto) 0.8 10 ^3/uL (0.4-5.4) Monocytes # (Auto) 0.6 10 ^3/uL (0-1.3) Eosinophils # (Auto) 0.2 10 ^3/uL (0-0.8) Basophils # (Auto) 0.1 10 ^3/uL (0-0.2) Nucleated Red Blood Cells 0.1 % Erythrocyte Sedimentation Rate 61 mm/hr (0-20) Sodium Level 137 mmol/L (136-145) Potassium Level 4.2 mmol/L (3.5-5.1) Chloride Level 103 mmol/L (98-107) Carbon Dioxide Level 25 mmol/L (20-31) Anion Gap 9 (5-15) Blood Urea Nitrogen 8 mg/dL (9-23) BUN/Creatinine Ratio 9.3 (10.0-20.0) Serum Glucose 113 mg/dL (74-106) Lactic Acid Level 0.9 mmol/L (0.4-2.0) Calcium Level 9.1 mg/dL (8.7-10.4) Total Bilirubin 0.7 mg/dL (0.2-1.0) Aspartate Amino Transferase (AST) 31 U/L (13-40) Alanine Aminotransferase (ALT) 48 U/L (7-40) Alkaline Phosphatase 109 U/L (46-116) C-Reactive Protein High Sensitivity 12.08 mg/dL (<1.0) B-Type Natriuretic Peptide 2.97 pg/mL (0-100) Total Protein 7.6 g/dL (5.7-8.2) Albumin 4.2 g/dL (3.2-4.8) Other Laboratory Tests 01/25/25 01:52 01/23/25 11:34 Brief Hx & Hospital Course: A 34-year-old male with a known history of chronic wounds of the left lower extremity, chronic marijuana use presented to the hospital with a left lower extremity pain found to have lower extremity cellulitis as well as acute on chronic wounds of the left lower extremity. Patient was admitted, Infectious Disease was consulted. Patient was started on IV antibiotics. Patient has left lower extremity cellulitis and wounds are improved. Patient will be given p.o. antibiotics. Patient also requested Cornish as patient is still have left lower extremity pain. Patient was recommended to have outpatient follow up with the PCP for standing lower extremity venous Doppler to rule out venous reflux disease. Condition at Discharge: Stable Final Diagnosis/Problems List A 34-year-old male with a known history of chronic wounds of the left lower extremity, chronic marijuana use presented to the hospital with a left lower extremity pain found to have 1. Left lower extremity cellulitis 2. Left lower extremity chronic wounds 3. Rule out venous reflux disease 4. Chronic marijuana use 5. History of asthma as a child currently outgrew Discharge Disposition: Home SNF Discharge Will this Physician continue t: No Discharge Instruct/Medications Diet: Cardiac 2g Na,low cholest Activity: See Comment Activity comment: No driving, no signing legal documents, no playing on heavy machinery while on narcotics Follow Up/Referral: Follow up with the PCP in 1-2 weeks for standing venous Doppler study to rule out venous reflux disease. Follow up with infectious disease doctor Jacquelin Parekh in 1-2 weeks Medications: Bactrim and Cornish as prescribed Discharge Statement: "Patient was advised to return to the ER or call 911 if any headaches, dizziness, shortness of breath, chest pain, abdominal pain, bleeding, fevers, or worsening of medical condition. Patient was counseled about treatment plan, medications, possible side effects, patientverbalized understanding. All questions were answered to the best of my ability. This discharge took greater then 30 minutes in planning, reviewing documentation, counseling the patient, and discussing with other team members." ASSESSMENT ASSESSMENT Assessment A 34-year-old male with a known history of chronic wounds of the left lower extremity, chronic marijuana use presented to the hospital with a left lower extremity pain found to have 1. Left lower extremity cellulitis 2. Left lower extremity chronic wounds 3. Rule out venous reflux disease 4. Chronic marijuana use 5. History of asthma as a child currently outgrew Date of Service: Jan 25, 2025 Billing Provider: JEFF LEYVA MD Common Visit Codes: NOT BILLABLE JEFF LEYVA MD Jan 25, 2025 14:17
[2025-01-25 17:00] VITALS: BP 123/89; PULSE 80; RESP 18; TEMP 97.7; O2SAT 98
== END 2025-01-25 18:46 | disposition home or self-care (01) | DRG 383 ==
LOC: ER 09:16 → OVERFLOW 13:49 → TELE-WESTW 15:55
PROVIDERS: ADMIT Internal Medicine; ATTEND Internal Medicine
DX: L03.116 Cellulitis of left lower limb (principal); F12.90 Cannabis use, unspecified, uncomplicated; I87.8 Other specified disorders of veins; J45.909 Unspecified asthma, uncomplicated; K21.9 Gastro-esophageal reflux disease without esophagitis; R60.0 Localized edema; Z87.09 Personal history of other diseases of the respiratory system
CPT/HCPCS: 36415; 80053; 80202; 82565; 83605; 83880; 85025; 85652; 86141; 87040; 93971; 96365; G0378; J2543